=== PATIENT | female | born 1935 | race Caucasian/White ===

== ENCOUNTER 2016-03-20 13:48 | Emergency (ER) | payer OTHER, MEDICARE ==
[~2016-03-20] VITALS: Ht 162.6 cm; Wt 81.6 kg
[~2016-03-20 13:48] MED LIST: ALLOPURINOL100 M1 PO; ALLOPURINOL300 MG PO; ANASTROZOLE1 M1 PO; ANASTROZOLE1 MG PO; ASPIRIN EC81 M1 PO; ASPIRIN81 M1 PO; CALCIUM ACETAT667 M3 PO; CIPRO 500MG TA500 MG PO; COREG 25 MG TAB25 MG PO; COREG12.5 M1 PO; FLAGYL 25O MG250 M1 PO; INCRUSE ELLI62.5 MCG INH; KETOROLAC TROMET5 ML OS; LASIX20 MG PO; LASIX40 M1 PO; LEVOTHYROXINE125 MCG PO; NEXIUM 40MG40 MG PO; NEXIUM40 M1 PO; NORVASC 5MG TAB5 MG PO; NORVASC10 M1 PO; NORVASC5 M1 PO; OMEPRAZOLE D/R20 MG PO; PROBIOTIC FORM1 EACH PO; PROBIOTIC FORMU1 CA1 PO; SYNTHROID0.025 MG PO; SYNTHROID125 MCG PO; TRIAMCINOL0.1 %/453 TOP
--- NOTE | 2016-03-20 16:29 | ED GI/GU/ABDOMINAL COMPLAINT ---
History of Present Illness General Chief Complaint: Abdominal Pain/Flank Pain Stated Complaint: ABD. PAIN Source: patient, family, old records Exam Limitations: no limitations Vital Signs & Intake/Output Vital Signs & Intake/Output Vital Signs Date Time Temp Pulse Resp B/P Pulse O2 O2 Flow FiO2 Ox Delivery Rate 03/20 1751 Room Air 03/20 1730 98.0 70 18 148/74 97 Room Air 03/20 1356 97.0 66 20 111/67 96 Room Air Allergies Coded Allergies: clonidine (Intermediate, LOW BLOOD PRESSURE 06/29/15) Reconcile Medications Allopurinol 100 MG TABLET 1 TAB PO DAILY GOUT (Reported) Amlodipine Besylate (Norvasc) 10 MG TABLET 1 TAB PO DAILY Hypertension Anastrozole 1 MG TABLET 1 TAB PO DAILY BREAST CANCER PREVENTATIVE (Reported) Aspirin (Ecotrin*) 81 MG TABLET.DR 1 TAB PO DAILY HEART (Reported) Bacillus Coagulans/Inulin (Probiotic Formula Capsule) 1 EACH CAPSULE 1 CAP PO DAILY PROBIOTIC - DIGESTION (Reported) Calcium Acetate 667 MG CAPSULE 1 CAP PO WM PHOSPHORUS (Reported) Carvedilol (Coreg) 12.5 MG TABLET 1 TAB PO BID HEART (Reported) Dicyclomine HCl 10 MG CAPSULE 1 CAP PO PRN MUSCLE SPASMS (Reported) Esomeprazole (Nexium) 40 MG CAPSULE.DR 1 CAP PO DAILY GI (Reported) Levothyroxine Sodium 125 MCG TABLET 1.5 TAB PO T/THR/SAT Thyroid Problem ( Reported) Levothyroxine Sodium (Synthroid) 125 MCG TABLET 1 TAB PO AD THYROID (Reported ) Ondansetron HCl (Zofran) 4 MG TABLET 1 TAB PO Q6-8P PRN nausea Oxycodone HCl/Acetaminophen (Percocet 5-325 MG Tablet) 5 MG-325 MG TABLET 1 TAB PO TID PRN pain Vit B Cmplx 3/FA/Vit C/Biotin (Vol-Care Rx Tablet) 1 MG-60 MG-300 MCG TABLET 1 TAB PO DAILY SUPPLEMENT (Reported) Triage Note: ABDOMINAL PAIN WITH NAUSEA X 3 DAYS. PT STATES SHE IS ABLE TO EAT BUT SHE DOESN'T FEEL HUNGRY. PT HAS HX KIDNEY CANCER, LUNG CANCER AND BREAST CANCER. LAST CHEMO 1 YEAR AGO. Triage Nurses Notes Reviewed? yes LMP (ages 10-50): hysterectomy ? N Is pt currently ? No Onset: Abrupt Duration: day(s): (3), intermittent, waxing and waning Timing: recent history Quality/Severity: aching, cramping Severity Numbers: 7 Location: left lower quadrant, left upper quadrant Radiation: no radiation Activities at Onset: none Prior Abdominal Problems: similar symptoms (DIVERTICULITIS) No Modifying Factors: none Associated Symptoms: DENIES HPI: 80-year-old female with history of Rt. renal cell carcinoma s/p resection 10 YA, lung cancer s/p right lobectomy 7 YA, breast cancer s/p bilateral mastectomy 4 YA and on anastrozole, thyroid cancer s/p thyroidectomy [address] 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 She denies any vomiting or diarrhea and states she's had normal bowel movements. She denies any chest pain shortness of breath fever or chills. No sick contacts with recent similar symptoms. No urinary complaints no back pain. Nothing makes the pain better or worse she states is intermittent waxing and waning in intensity no hematuria. Pts last colonoscopy was 2015. (SHAUN MURRELL) Past History Travel History Traveled to [place] past 21 day No Medical History Any Pertinent Medical History? see below for history Neurological: NONE EENT: NONE Cardiovascular: hypertension Respiratory: COPD, obstructive sleep apnea, LUNG CA Gastrointestinal: diverticulitis, GERD Hepatic: NONE Renal: NEPHRECTOMY R KIDNEY KIDNEY FAILURE Musculoskeletal: gout Psychiatric: NONE Endocrine: diabetes, hyperthyroidism Blood Disorders: NONE Cancer(s): breast cancer, lung cancer, thyroid cancer, KIDNEY FACILITIES OPERATOR/Reproductive: NONE History of MRSA: No History of VRE: No History of CDIFF: No Pneumonia Vaccine: 01/15/15 Surgical History Surgical History: appendectomy, cholecystectomy, hysterectomy, laminectomy ( cervical), BILATERAL MASTECTOMY, NEPHRECTOMY thyroidectomy for benign goiter NEPHRECTOMY Psychosocial History Who do you live with Daughter Services at Home None What is your primary language Venezuelan Tobacco Use: Quit >30 days ago ETOH Use: occasional use Illicit Drug Use: denies illicit drug use Family History Family History, If Any: Relation not specified for: *No pertinent family history Hx Contributory? No (SHAUN MURRELL) Review of Systems Review of Systems Constitutional: Reports: see HPI. All Other Systems: Reviewed and Negative Comments Review of systems: See HPI, All other systems negative. Constitutional, no chills fever or weight loss HEENT: No visual changes no sore throat no congestion Cardiovascular: No chest pain ,palpitation , orthopnea or ankle swelling Skin, no jaundice no rashes Respiratory: No dyspnea cough sputum or hemoptysis GI: nausea no vomiting : No dysuria No hematuria Muscle skeletal: no back pain, no neck pain, Neurologic: No numbness no confusion Psych: No stress anxiety or depression,. Heme/endocrine: No bruising no bleeding no polyuria or polydipsia Immunology: No splenectomy or history of AIDS (SHAUN MURRELL) Physical Exam Physical Exam General Appearance: well developed/nourished, no apparent distress, alert, awake Gastrointestinal: soft Comments: Well-developed well-nourished person in no acute distress HEENT: Normal EENT exam; PERRL, EOMI, HEAD is atraumatic. moist mucous membranes. Neck: Supple, no lymphadenopathy, normal range of motion Back: Nontender, no CVA tenderness. Full range of motion Cardiovascular: Regular rate and rhythms no murmurs rubs Respiratory: No respiratory distress. Patient speaking in full complete sentences. Breath sounds clear to auscultation bilaterally: NO W/R/R Abdomen: Soft, tender to palpation over the left upper and left lower quadrant no peritoneal signs no right-sided tenderness nondistended, no appreciable organomegaly. Normal bowel sounds. No rebound/guarding, No appreciable enlargement of the abdominal aorta, No ascites. Extremity: No edema, full range of motion of extremities Neuro: Alert oriented x3, motor sensory normal. There were no obvious focal neurologic abnormalities. Skin: No appreciable rash on exposed skin, skin is warm and dry. Psych: Mood and affect is normal, memory and judgment is normal. Core Measures ACS in differential dx? No Severe Sepsis Present: No Septic Shock Present: No (SHAUN MURRELL) Progress Differential Diagnosis: appendicitis, biliary colic, bowel obstruction, colon cancer, cholecystitis, diverticulitis, endometritis, esophageal varices, gastritis, hepatitis, hernia, hemorrhoids, ischemic bowel, inflamm bowel dis, kidney stone, Helga-Rolando tear, ovarian cyst, ovarian torsion, pancreatitis, peptic ulcer, PUD/GERD, perforated viscous, SBO, UTI/pyelo Plan of Care: Orders Procedure Date/time Status Saline Lock 03/20 1639 Active LIPASE 03/20 1639 Complete LACTIC ACID 03/20 1639 Complete COMPREHENSIVE METABOLIC PANEL 03/20 1639 Complete CBC WITHOUT DIFFERENTIAL 03/20 1639 Complete AMYLASE 03/20 1639 Complete Laboratory Tests 03/20/16 1940: Lactic Acid Cancelled 03/20/16 1645: Anion Gap 19 H, Estimated GFR 7 L, BUN/Creatinine Ratio 10.5, Glucose 100 H, Lactic Acid 0.5 L, Calcium 8.1 L, Total Bilirubin 0.6, AST 17, ALT 32, Alkaline Phosphatase 99, Total Protein 6.9, Albumin 4.2, Globulin 2.7, Albumin/ Globulin Ratio 1.6, Amylase 70, Lipase 173, CBC w Diff NO MAN DIFF REQ, RBC 3.57 L, MCV 93.0, MCH 31.0, RDW 15.8 H, MPV 8.1, Gran % 73.9, Lymphocytes % 14.3 L , Monocytes % 9.5 H, Eosinophils % 1.9, Basophils % 0.4, Absolute Granulocytes 6.5, Absolute Lymphocytes 1.3, Absolute Monocytes 0.8 H, Absolute Eosinophils 0.2, Absolute Basophils 0, PUBS MCHC 33.3 LABS ORDERED, OLD RECORDS REVIEWED, CT ORDERED 03/20/2016 5:42:38 PM on repeat evaluation patient reports pain has resolved with Dilaudid resting comfortably abdomen is soft nontender. Case and labs were discussed with the patient. Her creatinine is at baseline no white count patient clinically appears well she's had no episodes of vomiting. Case and CAT scan were reviewed with Dr. stephens will evaluate the patient and agrees with plan. Discussed her need for bland diet clear liquids Percocet for pain And Zofran as needed for nausea. Advise close follow-up with GI as well as her primary care this week advised return anytime sooner with any concerns she feels comfortable with plan answered all her questions cleared for discharge (MURALI BOWERS,SHAUN) Diagnostic Imaging: Viewed by Me: CT Scan. Discussed w/RAD: CT Scan. Radiology Impression: PATIENT: KIMBERLEE ASHLEY PRESENT AGE: 80 PATIENT ACCOUNT NO: [id number] : 37 LOCATION: [facility] ORDERING PHYSICIAN: SHAUN BOWERS SERVICE DATE: 03/20/16 EXAM TYPE: CAT - CT ABD & PELVIS W/O IV CONTRAS EXAMINATION: CT ABDOMEN AND PELVIS WITHOUT CONTRAST CLINICAL INFORMATION: 80-year-old female with left lower quadrant abdominal pain. History of right nephrectomy. COMPARISON: Abdomen-pelvis CT from 10/23/2015. Chest CT from 09/07/2015. TECHNIQUE: Multidetector volumetric imaging was performed from the superior aspect of the liver through the pubic symphysis. Sagittal and coronal reformatted images were obtained on the technologist's workstation. DLP: 591 mGy-cm. FINDINGS: LUNG BASES: There are old calcified granulomas within the lower lobes. Stable, small pleural-parenchymal opacity of the anterolateral right lower lobe is suggestive of focal scarring. Mild cardiomegaly. Coronary arteries are calcified. No pericardial or pleural effusion. LIVER, GALLBLADDER, AND BILIARY TREE: The liver has normal size, shape , and attenuation. No focal hepatic lesion or biliary ductal dilatation. Gallbladder is surgically absent. PANCREAS: Unremarkable. SPLEEN: Unremarkable. ADRENAL GLANDS: Unremarkable. KIDNEYS AND URETERS: No soft tissue mass in the right nephrectomy bed. Left kidney has lobulated contour and exhibits mild, diffuse cortical atrophy. There are a few cortical cysts of left kidney. Also, there is an indeterminate 1.2 cm partially exophytic lesion of the anterior surface of the mid left kidney, stable compared to 10/23/2015; it has a density of > 20 HU. It is unclear whether this represents a hyperdense cyst or solid mass (image 42, series 2), and it is not shown on the ultrasound exam of 2015. No nephrolithiasis or hydronephrosis. Left ureter is unremarkable. BLADDER : Unremarkable. GASTROINTESTINAL TRACT: Small bowel is unremarkable. The appendix is not identified. Diverticulosis of the sigmoid colon without diverticulitis. Along the lateral wall of the distal descending colon, there is fat stranding around a region of fat attenuation, consistent with epiploic appendagitis. No ascites or pneumoperitoneum. ABDOMINAL WALL: Unremarkable. LYMPH NODES: No pathologic sized lymph nodes within the abdomen or pelvis. VASCULAR: Atherosclerotic calcification of the abdominal aorta and iliac arteries without aneurysm. Also, there is extensive atherosclerotic calcification of the splenic artery. PELVIC VISCERA: The uterus is absent. Multiple phleboliths within the lower pelvis. No pelvic soft tissue mass or free fluid. OSSEOUS STRUCTURES: No acute findings within the degenerated thoracolumbar spine. Multilevel moderate and severe facet osteoarthritis of the lumbar spine. Schmorl's nodes at the L1-L2 endplates. There is chronic, grade 1 anterolisthesis of L4 on L5. No aggressive osseous lesions. IMPRESSION: 1. Epiploic appendagitis of the descending colon. 2. Sigmoid colon diverticulosis without diverticulitis. 3. Indeterminate 1.2 cm exophytic lesion of the anterior surface of the mid left kidney could represent a solid mass or hyperdense cyst, unchanged in size compared to 10/23/2015. DICTATED BY: ISSA CULLEN MD DATE/ TIME DICTATED:03/20/161708 ARTIST RELATIONSHIP MANAGER:KRISTIN DATE/TIME TRANSCRIBED: 03/20/161708 CONFIDENTIAL, DO NOT COPY WITHOUT APPROPRIATE AUTHORIZATION. < Electronically signed in Other Vendor System> SIGNED BY: ISSA CULLEN MD 03/20/16 172 Initial ED EKG: none (SHAUN MURRELL) Departure Departure Time of Disposition: 1740 Disposition: HOME OR SELF CARE Condition: Stable Clinical Impression Primary Impression: Epiploic appendagitis Referrals: VIRGINIA SHEPPARD,PEDRO PABLO Schwab (PCP/Family) Additional Instructions: Follow-up with your primary care physician as well as your chute boss this week Percocet for breakthrough pain use caution as this may make you drowsy. Zofran if needed for nausea return anytime sooner if any concerns Departure Forms: Customer Survey General Discharge Information Prescriptions: Current Visit Scripts Oxycodone HCl/Acetaminophen (Percocet 5-325 MG Tablet) 1 TAB PO TID PRN pain #12 TAB Ondansetron HCl (Zofran) 1 TAB PO Q6-8P PRN nausea #10 TAB (SHAUN MURRELL) PA/PRINTER ASSISTANT Co-Sign Statement Statement: ED Attending supervision documentation- [x I saw and evaluated the patient. I have also reviewed all the pertinent lab results and diagnostic results. I agree with the findings and the plan of care as documented in the PA's/PRINTER ASSISTANT's documentation. [] I have reviewed the ED Record and agree with the PA's/PRINTER ASSISTANT's documentation. [] Additions or exceptions (if any) to the PAs/PRINTER ASSISTANT's note and plan are summarized below: [] (MARIE STEPHENS DO)
[2016-03-20] MEDS ORDERED: VOL-CARE RX TA1 EACH PO (16:46)
[2016-03-20] MEDS ORDERED: DICYCLOMINE HCL10 M1 PO (16:47)
[2016-03-20 17:11] LABS: ABSOLUTE BASOPHIL COUNT 0 /CUMM (0.0-0.2); ABSOLUTE EOSINOPHIL COUNT 0.2 /CUMM (0.0-0.7); ABSOLUTE GRANULOCYTE CT 6.5 /CUMM (1.4-6.5); ABSOLUTE LYMPH COUNT 1.3 /CUMM (1.2-3.4); ABSOLUTE MONOCYTE COUNT 0.8 /CUMM (0.10-0.60); BASOPHIL % 0.4 % (0.0-2.0); EOSINOPHIL % 1.9 % (0-5); GRANULOCYTE % 73.9 % (42.2-75.2); HEMATOCRIT 33.1 % (37-47); MEAN CORPUSCULAR HGB CONC 33.3 G/DL (33.0-37.0); MEAN PLATELET VOLUME 8.1 FL (7.4-10.4); PLATELET COUNT 174 /CUMM (130-400); RBC DISTRIBUTION WIDTH 15.8 % (11.5-14.5); RED BLOOD CELL CT 3.57 /CUMM (4.20-5.40); WHITE BLOOD CELL COUNT 8.9 /CUMM (4.8-10.8)
--- NOTE | 2016-03-20 17:27 | CT SCAN REPORT ---
EXAMINATION: CT ABDOMEN AND PELVIS WITHOUT CONTRAST CLINICAL INFORMATION: 80-year-old female with left lower quadrant abdominal pain. History of right nephrectomy. COMPARISON: Abdomen-pelvis CT from 10/23/2015. Chest CT from 09/07/2015. TECHNIQUE: Multidetector volumetric imaging was performed from the superior aspect of the liver through the pubic symphysis. Sagittal and coronal reformatted images were obtained on the technologist's workstation. DLP: 591 mGy-cm. FINDINGS: LUNG BASES: There are old calcified granulomas within the lower lobes. Stable, small pleural-parenchymal opacity of the anterolateral right lower lobe is suggestive of focal scarring. Mild cardiomegaly. Coronary arteries are calcified. No pericardial or pleural effusion. LIVER, GALLBLADDER, AND BILIARY TREE: The liver has normal size, shape, and attenuation. No focal hepatic lesion or biliary ductal dilatation. Gallbladder is surgically absent. PANCREAS: Unremarkable. SPLEEN: Unremarkable. ADRENAL GLANDS: Unremarkable. KIDNEYS AND URETERS: No soft tissue mass in the right nephrectomy bed. Left kidney has lobulated contour and exhibits mild, diffuse cortical atrophy. There are a few cortical cysts of left kidney. Also, there is an indeterminate 1.2 cm partially exophytic lesion of the anterior surface of the mid left kidney, stable compared to 10/23/2015; it has a density of > 20 HU. It is unclear whether this represents a hyperdense cyst or solid mass (image 42, series 2), and it is not shown on the ultrasound exam of 10/24/2015. No nephrolithiasis or hydronephrosis. Left ureter is unremarkable. BLADDER: Unremarkable. GASTROINTESTINAL TRACT: Small bowel is unremarkable. The appendix is not identified. Diverticulosis of the sigmoid colon without diverticulitis. Along the lateral wall of the distal descending colon, there is fat stranding around a region of fat attenuation, consistent with epiploic appendagitis. No ascites or pneumoperitoneum. ABDOMINAL WALL: Unremarkable. LYMPH NODES: No pathologic sized lymph nodes within the abdomen or pelvis. VASCULAR: Atherosclerotic calcification of the abdominal aorta and iliac arteries without aneurysm. Also, there is extensive atherosclerotic calcification of the splenic artery. PELVIC VISCERA: The uterus is absent. Multiple phleboliths within the lower pelvis. No pelvic soft tissue mass or free fluid. OSSEOUS STRUCTURES: No acute findings within the degenerated thoracolumbar spine. Multilevel moderate and severe facet osteoarthritis of the lumbar spine. Schmorl's nodes at the L1-L2 endplates. There is chronic, grade 1 anterolisthesis of L4 on L5. No aggressive osseous lesions. IMPRESSION: 1. Epiploic appendagitis of the descending colon. 2. Sigmoid colon diverticulosis without diverticulitis. 3. Indeterminate 1.2 cm exophytic lesion of the anterior surface of the mid left kidney could represent a solid mass or hyperdense cyst, unchanged in size compared to 10/23/2015.
[2016-03-20 17:30] VITALS: BP 148/74
[2016-03-20] MEDS ORDERED: ZOFRAN4 M2 PO (17:41)
[2016-03-20] MEDS ORDERED: PERCOCET 5-3251 EACH PO (17:41)
== END 2016-03-20 17:52 ==
LOC: ERH 13:48
PROVIDERS: Physician Assistant Medical
DX: R10.32 Left lower quadrant pain (principal); R10.12 Left upper quadrant pain
CPT/HCPCS: 74176; 96374; 96375; J2405

== ENCOUNTER 2016-07-23 16:17 | Emergency (ER) | payer OTHER, MEDICARE ==
[~2016-07-23] VITALS: Ht 162.6 cm; Wt 77.1 kg
[~2016-07-23 16:17] MED LIST changes: +DICYCLOMINE HCL10 M1 PO; +PERCOCET 5-3251 EACH PO; +VOL-CARE RX TA1 EACH PO; +ZOFRAN4 M2 PO
[2016-07-23 16:23] VITALS: BP 145/71
--- NOTE | 2016-07-23 17:03 | ED ANIMAL BITE/WOUND CHECK ---
History of Present Illness General Chief Complaint: General Adult Stated Complaint: LAC TO HAND YESTERDAY STILL BLEEDING Source: patient, family Exam Limitations: poor historian Vital Signs & Intake/Output Vital Signs & Intake/Output Vital Signs Date Time Temp Pulse Resp B/P B/P Pulse O2 O2 Flow FiO2 Mean Ox Delivery Rate 07/23 1623 97.7 69 16 145/71 97 Room Air Allergies Coded Allergies: clonidine (Intermediate, LOW BLOOD PRESSURE 06/29/15) Reconcile Medications Allopurinol 100 MG TABLET 1 TAB PO DAILY GOUT (Reported) Amlodipine Besylate (Norvasc) 10 MG TABLET 1 TAB PO DAILY Hypertension Anastrozole 1 MG TABLET 1 TAB PO DAILY BREAST CANCER PREVENTATIVE (Reported) Aspirin (Ecotrin*) 81 MG TABLET.DR 1 TAB PO DAILY HEART (Reported) Bacillus Coagulans/Inulin (Probiotic Formula Capsule) 1 EACH CAPSULE 1 CAP PO DAILY PROBIOTIC - DIGESTION (Reported) Calcium Acetate 667 MG CAPSULE 1 CAP PO WM PHOSPHORUS (Reported) Carvedilol (Coreg) 12.5 MG TABLET 1 TAB PO BID HEART (Reported) Dicyclomine HCl 10 MG CAPSULE 1 CAP PO PRN MUSCLE SPASMS (Reported) Esomeprazole (Nexium) 40 MG CAPSULE.DR 1 CAP PO DAILY GI (Reported) Levothyroxine Sodium 125 MCG TABLET 1.5 TAB PO T/THR/SAT Thyroid Problem ( Reported) Levothyroxine Sodium (Synthroid) 125 MCG TABLET 1 TAB PO AD THYROID (Reported ) Ondansetron HCl (Zofran) 4 MG TABLET 1 TAB PO Q6-8P PRN nausea Oxycodone HCl/Acetaminophen (Percocet 5-325 MG Tablet) 5 MG-325 MG TABLET 1 TAB PO TID PRN pain Vit B Cmplx 3/FA/Vit C/Biotin (Vol-Care Rx Tablet) 1 MG-60 MG-300 MCG TABLET 1 TAB PO DAILY SUPPLEMENT (Reported) Triage Note: PT HAS PUNCTURE WOUND TO LEFT HAND. PT STATES SHE WAS SENT BY HER DIALYSIS NURSE WAS TOLD SHE HAD TO COME TO ED. PT STATES THAT THIS HAPPEND YESTERDAY PT STATES IT IS HER ACCESS ARM FOR HER DIALYSIS SHUNT. Triage Nurses Notes Reviewed? yes HPI: Patient is a 81 year old female history of ESRD on Friday, , Friday dialysis presents for evaluation of left hand puncture wound. Injury occurred yesterday morning. Patient was cutting a kiwi when the knife accidentally slipped puncturing her left hand. Pain is mild at rest, severe with palpation. Patient is unsure of her most recent tetanus immunization, believes it may have been in 2003 or 2004. Patient is right hand dominant. Denies numbness or decreased range of motion. (BARRERA MATIAS) Past History Travel History Traveled to [place] past 21 day No Medical History Any Pertinent Medical History? 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 No (BARRERA MATIAS) Review of Systems Review of Systems Constitutional: Denies: chills, fever. Musculoskeletal: Reports: see HPI. Skin: Reports: see HPI. Neurological/Psychological: Denies: numbness, paresthesia. Hematologic/Endocrine: Reports: bleeding (from wound, none currently). Immunologic/Allergic: Denies: splenectomy. (BARRERA MATIAS) Physical Exam Physical Exam General Appearance: well developed/nourished, alert, awake Head: atraumatic, normal appearance Eyes: Bilateral: normal appearance. Ears, Nose, Throat: hearing grossly normal Neck: normal inspection, supple, full range of motion Respiratory: no respiratory distress Back: normal range of motion Extremities: 3 mm puncture wound to the volar surface of the left hand between the distal 2nd and 3rd metacarpals. Full range of motion of all fingers. Sensation grossly intact to all fingers. Normal tendon function in fingers. AV fistula left upper arm. Neurologic/Psych: awake, alert, oriented x 3, normal mood/affect Skin: warm/dry (BARRERA MATIAS) Progress Differential Diagnosis: foreign body, fracture, tendon laceration, nerve laceration Plan of Care: Current Medications Sig/Altagracia Start time Last Medication Dose Stop Time Status Admin Tetanus/Diphtheria 0.5 ML ONCE ONE 07/23 1714 UNVr Toxoids Adsorbed 07/24 1715 (Decavac) No bony tenderness on exam. Imaging deferred secondary to exam. Betadine to the wound. cleansed with sterile saline. Bacitracin and a clean dressing placed. Discussed with Dr. Nassar. (BARRERA MATIAS) Departure Departure Time of Disposition: 1718 Disposition: HOME OR SELF CARE Condition: Stable Clinical Impression Primary Impression: Puncture wound of hand, left Qualifiers: Encounter type: initial encounter Foreign body presence: unspecified Qualified Code: S61.432A - Puncture wound without foreign body of left hand, initial encounter Referrals: VIRGINIA SHEPPARD,PEDRO PABLO Schwab (PCP/Family) Additional Instructions: Monitor for signs of infection: redness spreading from wound, pus from wound, fevers, increasing swelling, increasing pain. Return to the ER if any signs of infection. Bacitracin and a clean dressing to the wound 1-2 times a day. Departure Forms: Customer Survey General Discharge Information (BARRERA MATIAS) PA/SUPERVISOR WOOD CREW Co-Sign Statement Statement: ED Attending supervision documentation- [X] I saw and evaluated the patient. I have also reviewed all the pertinent lab results and diagnostic results. I agree with the findings and the plan of care as documented in the PA's/SUPERVISOR WOOD CREW's documentation. [] I have reviewed the ED Record and agree with the PA's/SUPERVISOR WOOD CREW's documentation. [] Additions or exceptions (if any) to the PAs/SUPERVISOR WOOD CREW's note and plan are summarized below: [] (MARIE STEPHENS DO
== END 2016-07-23 17:30 ==
LOC: ERH 16:17
DX: S61.432A Puncture wound without foreign body of left hand, initial encounter (principal); W26.0XXA Contact with knife, initial encounter; Y93.G1 Activity, food preparation and clean up; Y92.9 Unspecified place or not applicable
CPT/HCPCS: 90471; 90714

== ENCOUNTER 2016-10-03 14:56 | Emergency (ER) | payer OTHER, MEDICARE ==
--- NOTE | 2016-10-03 15:44 | RADIOLOGY REPORT ---
EXAMINATION: XR CHEST CLINICAL INFORMATION: Cough for one week. Bronchitis versus pneumonia. COMPARISON: CT chest 09/21/2014, 09/19/2016 TECHNIQUE: 2 views of the chest were obtained. FINDINGS: Surgical clips at the base of the neck. Lungs are clear. No pulmonary vascular congestion. No infiltrate or pleural effusion. The heart size is normal. The cardiac and mediastinal contours are normal. There are calcifications of the thoracic aorta. There are multilevel degenerative changes of dorsal spine. IMPRESSION: No acute abnormality of chest.
--- NOTE | 2016-10-03 17:37 | ED DYSPNEA/ASTHMA COMPLAINT ---
History of Present Illness General Chief Complaint: General Adult Stated Complaint: "I CAN'T STOP COUGHING" Source: patient, family Exam Limitations: no limitations Vital Signs & Intake/Output Vital Signs & Intake/Output Vital Signs Date Time Temp Pulse Resp B/P B/P Pulse O2 O2 Flow FiO2 Mean Ox Delivery Rate 10/03 1910 97.7 65 22 152/74 95 Room Air 10/03 1837 Room Air 10/03 1834 97 10/03 1511 97.4 76 16 162/74 97 Room Air ED Intake and Output 10/04 0000 10/03 1200 Intake Total Output Total Balance Patient 170 lb Weight Weight Estimated Measurement Method Allergies Coded Allergies: clonidine (Intermediate, LOW BLOOD PRESSURE 06/29/15) Triage Note: URI SYMPTOMS WITH NONSTOP NONPRODUCTIVE COUGH X1 WEEK, SAW DR BINGHAM LAST WEEK WHEN IT STARTED. HAS BEEN TAKING MUCINEX AND COUGH MEDICINE WITHOUT RELIEF. COUGHS SO HARD SOMETIMES SHE REGURGITATES. O2 SAT 98% RA. ALSO HAD U/S TODAY FOR L KIDNEY ABNORMALITY, HAD R NEPHRECTOMY. L ARM LIMITATION DUE TO DIALYSIS SHUNT. BILATERAL TOTAL MASTECTOMY WITH LUMPECTOMY. DENIES ACTIVE CP OR SOB. Triage Nurses Notes Reviewed? 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 Patient states over the past 5 days she has had a worsening nonproductive cough. She has been taking cough drops, Delsym, and Mucinex without any improvement. Cough is dry and is present throughout the day. Patient states that she has multiple episodes where she coughs so much that she will vomit. She had COPD but has never had symptoms like this before. She has a long-acting beta agonist inhaler that she has been using over the past week without improvement. She saw her primary care doctor when the symptoms first started but was not started on any antibiotics. She was recommended over- the-counter cough suppressants. She denies any chest pain shortness of breath, lower extremity swelling, recent trauma, recent surgery, hemoptysis, fevers, abdominal pain, back pain, or any other associated symptoms. (SIMONE GRIGGS,IFRAH) Reconcile Medications Albuterol Sulfate (Proair Hfa) 90 MCG HFA.AER.AD 2 PUF INH Q4-6 PRN PRN cough Allopurinol 100 MG TABLET 1 TAB PO DAILY GOUT (Reported) Amlodipine Besylate (Norvasc) 10 MG TABLET 1 TAB PO DAILY Hypertension Anastrozole 1 MG TABLET 1 TAB PO DAILY BREAST CANCER PREVENTATIVE (Reported) Aspirin (Ecotrin*) 81 MG TABLET.DR 1 TAB PO DAILY HEART (Reported) Azithromycin (Zithromax) 250 MG TABLET 1 DP PO AD uri 2 the first day followed by 1 for days 2-5 Bacillus Coagulans/Inulin (Probiotic Formula Capsule) 1 EACH CAPSULE 1 CAP PO DAILY PROBIOTIC - DIGESTION (Reported) Calcium Acetate 667 MG CAPSULE 1 CAP PO WM PHOSPHORUS (Reported) Carvedilol (Coreg) 25 MG TABLET 2 TAB PO BID HEART/BP (Reported) Codeine Phosphate/Guaifenesi (Virtussin AC Liquid) 10 MG-100 MG/5 ML LIQUID 10 ML PO Q6H PRN COUGH Dicyclomine HCl 10 MG CAPSULE 1 CAP PO PRN MUSCLE SPASMS (Reported) Esomeprazole (Nexium) 40 MG CAPSULE.DR 1 CAP PO DAILY GI (Reported) Levothyroxine Sodium 125 MCG TABLET 1.5 TAB PO T/THR/SAT Thyroid Problem ( Reported) Levothyroxine Sodium (Synthroid) 125 MCG TABLET 1 TAB PO AD THYROID (Reported ) Oxycodone HCl/Acetaminophen (Percocet 5-325 MG Tablet) 5 MG-325 MG TABLET 1 TAB PO BID PRN pain Tramadol HCl 50 MG TABLET 1 TAB PO BIDP PRN PAIN (Reported) Vit B Cmplx 3/FA/Vit C/Biotin (Vol-Care Rx Tablet) 1 MG-60 MG-300 MCG TABLET 1 TAB PO DAILY SUPPLEMENT (Reported) (MARC SHEPPARD,MARIE Daly) Past History Travel History Traveled to [place] past 21 day No Medical History Any Pertinent Medical History? 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 No (SIMONE GRIGGS,IFRAH) Review of Systems Review of Systems Constitutional: Reports: no symptoms. EENTM: Reports: no symptoms. Respiratory: Reports: see HPI, cough. Cardiovascular: Reports: no symptoms. GI: Reports: no symptoms. Genitourinary: Reports: no symptoms. Musculoskeletal: Reports: no symptoms. Skin: Reports: no symptoms. Neurological/Psychological: Reports: no symptoms. Hematologic/Endocrine: Reports: no symptoms. Immunologic/Allergic: Reports: no symptoms. All Other Systems: Reviewed and Negative (SIMONE GRIGGS,IFRAH) Physical Exam Physical Exam General Appearance: well developed/nourished, no apparent distress, alert, awake , coughing Head: atraumatic, normal appearance Eyes: Bilateral: normal appearance, PERRL, EOMI. Ears, Nose, Throat: normal pharynx, normal ENT inspection, hearing grossly normal Neck: normal inspection, supple, full range of motion, no midline tenderness Respiratory: normal breath sounds, chest non-tender, no respiratory distress, lungs clear Cardiovascular: regular rate/rhythm, normal peripheral pulses Peripheral Pulses: 2+ radial (R), 2+ radial (L) Gastrointestinal: normal bowel sounds, soft, non-tender, no organomegaly Extremities: normal inspection, normal capillary refill, normal range of motion, no edema Neurologic/Psych: no motor/sensory deficits, awake, alert, oriented x 3, normal gait, normal mood/affect Skin: intact, normal color, warm/dry Lymphatic: no anterior cervical riri Core Measures ACS in differential dx? No Severe Sepsis Present: No Septic Shock Present: No (SIMONE GRIGGS,IFRAH) Progress Differential Diagnosis: asthma, bronchitis, CHF, COPD, pneumonia, viral uri, pertussis Plan of Care: Current Medications Sig/Altagracia Start time Last Medication Dose Stop Time Status Admin Guaifenesin/Codeine 10 ML ONCE ONE 10/03 1814 UNVr Phosphate 10/04 1815 (Robitussin AC) Albuterol Sulfate 3 ML ONCE ONE 10/03 1744 UNVr (Proventil) 10/03 1745 Ipratropium [place] 2.5 ML ONCE ONE 10/03 1744 UNVr (Atrovent) 10/03 1745 Patient seen and evaluated. She has a nonproductive cough and is coughing multiple times during exam. Patient will be given a DuoNeb and robitussin ac in attempt to improve her symptoms. Chest x-ray was negative for pneumonia or any other acute findings. Patient is feeling better after receiving Robitussin before meals and a DuoNeb. Patient remains afebrile no respiratory distress her lungs are clear. Patient will be given a prescription for a pro-air inhaler, Z-Rangel, Robitussin-AC. Advised patient to follow up with her primary care doctor for further evaluation. Discussed return precautions with patient. Case discussed with Dr. Zuleta he agrees with plan. I discussed with the patient at length all of their results. I had an extensive conversation regarding need for close follow up with their primary care physician this week as well as return precautions. I answered all of their questions, they feel comfortable with the plan and follow-up care. I discussed with the patient/family the medications that they will receive. I gave them signs and symptoms that could indicate an adverse reaction. I have advised them to limit their activities until they can see how they respond to the medication. (SIMONE GRIGGS,IFRAH) Diagnostic Imaging: Viewed by Me: Radiology Read. Discussed w/RAD: Radiology Read. Initial ED EKG: none Comments: PATIENT: KIMBERLEE ASHLEY PRESENT AGE: 81 PATIENT ACCOUNT NO: [id number] : 37 LOCATION: [facility] ORDERING PHYSICIAN: MARIE STEPHENS DO (TBS) SERVICE DATE: 10/03/16 EXAM TYPE: RAD - XRY-CHEST XRAY, PA AND LATERAL EXAMINATION: XR CHEST CLINICAL INFORMATION: Cough for one week. Bronchitis versus pneumonia. COMPARISON: CT chest 09/21/2014, 09/19/2016 TECHNIQUE: 2 views of the chest were obtained. FINDINGS: Surgical clips at the base of the neck. Lungs are clear. No pulmonary vascular congestion. No infiltrate or pleural effusion. The heart size is normal. The cardiac and mediastinal contours are normal. There are calcifications of the thoracic aorta. There are multilevel degenerative changes of dorsal spine. IMPRESSION: No acute abnormality of chest. DICTATED BY: TONEY DELCID MD DATE/TIME DICTATED:10/03/161533 LAUNDRY TECH:KRISTIN DATE/TIME TRANSCRIBED:10/03/161533 CONFIDENTIAL, DO NOT COPY WITHOUT APPROPRIATE AUTHORIZATION. (SIMONE GRIGGS,IFRAH) Departure Departure Disposition: HOME OR SELF CARE Condition: Stable Clinical Impression Primary Impression: Cough Referrals: VIRGINIA SHEPPARD,PEDRO PABLO Schwab (PCP/Family) Additional Instructions: Rest and drink plenty of fluids. Use Robitussin-AC as needed for cough every 4- 6 hours this may cause drowsiness. Use the albuterol inhaler every 4-6 hours as needed for cough or shortness of breath. Take antibiotics as directed for the full course. Make a follow-up appointment with your primary care doctor as soon as possible. Return to the emergency department with any concerns. Please go over all results of today's visit with your primary care doctor. Contact your primary care doctor to let them know you were here in the emergency room. There may be nonspecific findings which may not be related to your visit today here in the emergency room but may require further evaluation and chronic monitoring by your primary care doctor. If you had a laceration today the chance of foreign body always remains. You should follow-up with your primary care doctor for recheck in 3-5 days for a wound check. If you had an x-ray done there is a chance that a fracture could have been missed on initial read and you should follow-up with your primary care doctor for repeat x-rays if symptoms persist. If your blood pressure was elevated here in the emergency room please have rechecked by her primary care doctor within the next 48 hours by your primary care doctor. If you were prescribed a narcotic here in the emergency room or any type of controlled substances you're not allowed to drive while taking this medication or operate any type of heavy machinery. Narcotics can make you feel lightheaded dizziness nausea and can cause constipation. You may need to pickers material handlers a stool softener. Thank you for choosing [facility] emergency room. Please return to the emergency room immediately if you have any other concerns worsening of symptoms. Departure Forms: Customer Survey General Discharge Information Prescriptions: Current Visit Scripts Azithromycin (Zithromax) 1 DP PO AD #6 TAB 2 the first day followed by 1 for days 2-5 Albuterol Sulfate (Proair Hfa) 2 PUF INH Q4-6 PRN PRN cough #1 INHAL Codeine Phosphate/Guaifenesi (Virtussin AC Liquid) 10 ML PO Q6H PRN COUGH #240 ML (IFRAH NICHOLS PA-C) PA/MOBILE PARAMEDICAL EXAMINER Co-Sign Statement Statement: ED Attending supervision documentation- [x] I saw and evaluated the patient. I have also reviewed all the pertinent lab results and diagnostic results. I agree with the findings and the plan of care as documented in the PA's/MOBILE PARAMEDICAL EXAMINER's documentation. [] I have reviewed the ED Record and agree with the PA's/MOBILE PARAMEDICAL EXAMINER's documentation. [] Additions or exceptions (if any) to the PAs/MOBILE PARAMEDICAL EXAMINER's note and plan are summarized below: [] (MARC SHEPPARD,MARIE Daly) Critical Care Note Critical Care Note Critical Care Time: non-applicable (IFRAH NICHOLS PA-C)
[2016-10-03] MEDS ORDERED: COREG25 M1 PO (18:00)
[2016-10-03] MEDS ORDERED: TRAMADOL HCL50 M1 PO (18:02)
[2016-10-03 19:11] VITALS: BP 152/74
[2016-10-03] MEDS ORDERED: ZITHROMAX250 M2 PO (19:12)
[2016-10-03] MEDS ORDERED: PROAIR HFA8.5 GM INH (19:12)
[2016-10-03] MEDS ORDERED: VIRTUSSIN AC L118 M1 PO (19:12)
[2016-10-07] MEDS ORDERED: PERCOCET 5-3251 EACH PO (18:51)
[2016-10-14] MEDS ORDERED: SPIRIVA RESPIMAT4 GM INH (18:58)
== END 2016-10-03 19:21 ==
LOC: ERH 14:56
DX: R05 Cough (principal)
CPT/HCPCS: 1263